=== PATIENT | female | born 1960 | race African-American/Black ===

== ENCOUNTER 2016-09-15 20:43 | Emergency (ER) | payer BC, OTHER ==
[~2016-09-15] VITALS: Ht 154.9 cm; Wt 68.1 kg
[2016-09-15 20:50] VITALS: Ht 154.9 cm; Wt 68.1 kg
[2016-09-15] MEDS ORDERED: KETOROLAC 60 MG INJ IM STA (22:53)
[2016-09-15] MEDS ORDERED: AMLO-147 PO (23:11)
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
--- NOTE | 2016-09-16 00:52 | RADRPT ---
PROCEDURE: Left shoulder. CLINICAL INDICATION: Pain. TECHNIQUE: Three views of the left shoulder. COMPARISON: None. FINDINGS: There is no fracture, dislocation or bone destruction. The joint spaces are within normal limits. Bone mineralization is within normal limits. There is no radiopaque foreign body or abnormal calcif ication. IMPRESSION: Unremarkable left shoulder. .Jaylan Robles MD, MD Date Time Electronically viewed and signed by .Jaylan Robles MD, on 09/16/2016 00:51 .T/
[2016-09-16] MEDS ORDERED: CYCL-319 PO (00:59)
[2016-09-16] MEDS ORDERED: IBUP-1542 PO (00:59)
[2016-09-16] MEDS ORDERED: HYDR-906 PO (00:59)
[2016-09-16 01:07] VITALS: BP 122/82; PULSE 79; RESP 20; TEMP 98.4
== END 2016-09-16 01:09 | disposition home or self-care (01) ==
LOC: FTE 20:43
DX: S49.92XA Unspecified injury of left shoulder and upper arm, initial encounter (principal); I10 Essential (primary) hypertension; S16.1XXA Strain of muscle, fascia and tendon at neck level, initial encounter; V43.52XA Car driver injured in collision with other type car in traffic accident, initial encounter
CPT/HCPCS: 73030; J1885; 96372